=== PATIENT | female | born 1990 | race Caucasian/White ===

== ENCOUNTER 2018-10-18 10:49 | Inpatient (IN) ==
[2018-10-18] MEDS ORDERED: *HR* Labetalol 20 MG/4 ML SYRINGE IVP ONE ×2 (11:43→12:57)
[2018-10-18 12:20] LABS: Basophils # 0.1 K/mcL (0.0-0.2); Basophils % 0.5 %; Eosinophils # 0.1 K/mcL (0.0-0.6); Eosinophils % 0.5 %; Hematocrit 39.8 % (35.3-44.9); Hemoglobin 14.1 g/dL (11.5-15.4); Immature Granulocytes % 0.8 % (0-4); Lymphocytes # 3.2 K/mcL (0.6-4.6); Lymphocytes % 27.8 %; Mean Corpuscular HGB Conc 35.4 g/dL (31.6-35.5); Mean Corpuscular Hemoglobin 32.5 pg (28.0-33.3); Mean Corpuscular Volume 91.7 fL (83.0-100.0); Mean Platelet Volume 12.4 fL (9.4-12.4); Monocytes # 0.8 K/mcL (0.0-1.3); Monocytes % 7.2 %; Neutrophils # 7.3 K/mcL (1.6-8.9); Platelet Count 154 K/mcL (140-400); Red Blood Count 4.34 M/mcL (3.82-4.97); Red Cell Distribution Width 12.5 % (11.5-14.5); Segmented Neutrophils % 63.2 %
[2018-10-18 12:41] LABS: Alanine Aminotransferase 13 Units/L (7-52); Aspartate Amino Transferase 20 Units/L (13-39); BUN/Creatinine Ratio 21 (6-26); Blood Urea Nitrogen 13 mg/dL (6-20); Lactate Dehydrogenase 148 Units/L (140-271); Uric Acid 7.6 mg/dL (2.3-7.6); eGFR For Non-African Americans > 60 (> 60)
[2018-10-18 12:42] LABS: Protein/Creatinine Ratio,Urine 0.7 mg/mg (0.00-0.20)
[2018-10-18 12:45] LABS: Amphetamine Screen,Urine Negative ng/mL (Cutoff=1000); Barbiturate Screen,Urine Negative ng/mL (Cutoff=200); Benzodiazepines Screen,Urine Negative ng/mL (Cutoff=200); Cannabinoid Screen,Urine Negative ng/mL (Cutoff = 50); Cocaine Screen,Urine Negative ng/mL (Cutoff= 300); Opiate Screen,Urine Negative ng/mL (Cutoff=300); Phencyclidine Screen,Urine Negative ng/mL (Cutoff=25)
[2018-10-18] MEDS ORDERED: *HR* Nalbuphine 10 MG/ML AMPUL IVP PRN (12:58)
[2018-10-18] MEDS ORDERED: Metoclopramide 10 MG/2 ML VIAL IVP PRN (12:58)
[2018-10-18] MEDS ORDERED: Naloxone 0.4 MG/ML INJ IVP PRN (12:58)
[2018-10-18] MEDS ORDERED: Famotidine 20 MG/2 ML VIAL IVP PRN (12:58)
[2018-10-18] MEDS ORDERED: Ondansetron 4 MG/2 ML VIAL IVP PRN (12:58)
[2018-10-18] MEDS ORDERED: Magnesium Sulfate 20 gm/500mL 20 GM/500 ML IV.SOLN IVC SCH (13:00)
[2018-10-18] MEDS ORDERED: Ringers Solution, Lactated 1,000 ML IVC SCH (13:00)
[2018-10-18] MEDS ORDERED: miSOPROStol 25 MCG TABLET PO STA (13:02)
--- NOTE | 2018-10-18 13:08 | OB/GYN History & Physical ---
Date of Encounter: 10/18/18 Time of Encounter: 13:03 Assessment and Plan (1) Pre-eclampsia, severe Current visit: Yes Status: Acute Preeclampsia with severe features given severe range blood pressures, elevated protein:creatinine ratio of 0.7, and hyperreflexia. Plan per Dr. Cardona and Dr. Moser who are in agreement about need for admission, delivery and magnesium. Plan for IOl with cyr and cytotec. Magnesium 4 gram load and then 2 grams per hour. Labetalol 20 given in triage and another 40mg at time of admission. Continue to monitor and treat blood pressures as needed. Epidural when requested. Anticipate . Qualifiers: Trimester: third trimester Qualified Code(s): O14.13 - Severe pre- eclampsia, third trimester (2) 37 weeks gestation of Current visit: Yes Status: Acute (3) Obesity affecting in third trimester Current visit: Yes Status: Acute Ultrasound from 09/27/18 showed an AGA fetus in vertex position with a normal JOAQUIN. EFW at that time was 5lbs 2oz (46%) (4) Uterine fibroid during , antepartum Current visit: Yes Status: Acute History of Present Illness Chief complaint: preeclampsia HPI: Ms. Nick is a 27 year old female presenting at 37w5d from office for elevated blood pressures 148/96 and 155/94. She also has new onset of 500+ proteinuria. She denies MCCLELLAND, vision changes, RUQ pain, contractions, leaking, bleeding, or any other complaints. Good FM. This has been complicated by obesity and a 3cm posterior fibroid. She received adequate care from Dr. Moser. O positive Rubella immune Treponema, HIV, Hepatitis B negative GBS negative Past Med Surg Social Fam HX - Past Medical History Medical history: no medical history Psychiatric history: no psych history - Past Surgical History Surgical History: no surgical history - Social History Smoking Status: Never smoker Smokeless Tobacco Status: No Alcohol use: none Drug use: none - Family History Mother Living Status: Still Living Hx Family Cardiac Disorders: Yes (HTN) Hx Family Endocrine Disorder: Yes (DM) Father Hx Family Cancer: Yes (Testicular cancer) Obstetrical History - Pregnancies : 1 Medications and Allergies 19 Tablet 1 tab PO DAILY 10/18/18 [History] Allergy/AdvReac Type Severity Reaction Status Date / Time ampicillin Allergy Hives Verified 10/18/18 11:25 Bee Pollen Allergy Swelling Verified 10/18/18 11:25 of Lip/Tongue/Throat Penicillins Allergy Hives Verified 10/18/18 11:25 Review of System OB All systems PM: reviewed and no additional remarkable complaints except as stated Exam - Constitutional Constitutional: well developed, well nourished, no acute distress, obese - HEENT HEENT: Mucus Membranes Moist - Lungs Respiratory exam: CTAB - Cardiovascular Cardiovascular exam: RRR - Abdomen Abdomen: Present: gravid, non tender - Extremities Extremities exam: normal inspection Deep Tendon Reflex Grade: 3+ Normal But Brisk - Vulva Vulva: bilateral: normal - Vagina Vagina: Present: normal moisture - Cervix Dilation: 1 Effacement: 80 Station: -3 - Anus/Rectum Anus/Rectum: Present: normal perianal skin Results Result Diagrams: 10/18/18 12:01 10/18/18 12:01 Abnormal lab results WBC 11.6 K/mcL (4.3-11.1) H 10/18/18 12:01 Protein/Creatinin Ratio 0.70 mg/mg (0.00-0.20) H 10/18/18 11:56 Urine Total Protein 122 mg/dL (1-14) H 10/18/18 11:56 All other labs normal. - VTE Reasons for not Prescribing Prophylaxis: Treatment not Indicated - Low risk for VTE
[2018-10-18] MEDS ORDERED: Epidural Premix (fent/bupiv) 110 ML EP SCH (13:45)
--- NOTE | 2018-10-18 13:51 | Anesthesia Evaluation PreOp ---
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: Denies Any Significant HX Other Medical History: Denies Any Significant HX Anesthesia History: No Prior Anesthetic Complications : Yes () Alcohol Use: none Drug use: none Medications and Allergies 19 Tablet 1 tab PO DAILY 10/18/18 [History] Allergy/AdvReac Type Severity Reaction Status Date / Time ampicillin Allergy Hives Verified 10/18/18 11:25 Bee Pollen Allergy Swelling Verified 10/18/18 11:25 of Lip/Tongue/Throat Penicillins Allergy Hives Verified 10/18/18 11:25 - Meds/Allergy Pre-op Review Medications Reviewed: Yes Allergies Reviewed: Yes Beta Blockers on Current Med List: Yes (10/18 @ 9000) Anesthesia Results - Labs 10/18/18 12:01 10/18/18 12:01 Anesthesia Exam O2 Sat Height 1.63 m Height 1.63 m Weight 108.3 kg NPO (# of Hours): 4 Pain Scale: 2 Pain Scale Used: Numeric (1 - 10) - HEENT Pupil (Motor): Pupils equal Mallampati: II Teeth: Normal Oral Opening: Greater than 3 - PATTERN GRADER SUPERVISOR LOC: Oriented PATTERN GRADER SUPERVISOR Motor: Normal RUE, Normal LUE, Normal RLE, Normal LLE, Normal Face PATTERN GRADER SUPERVISOR Sensory: Normal: RUE, LUE, RLE, LLE, Face - Cardiac Rhythm: Regular Murmur: None JVD: No Carotid Bruit: No - Pulmonary Breath Sounds: bilateral Clear Respiratory Effort: Symmetrical Anesthesia Assess/Plan ASA Score: 3 (BMI = 41) Level of consciousness: Cooperative, Oriented Anesthetic Plan: General (plan b), Epidural (plan a) Autologous Blood: Yes Monitoring Plan: Standard Monitors
[2018-10-18] MEDS ORDERED: Epidural Premix (fent/bupiv) 110 ML EP ONE (13:52)
[2018-10-18] MEDS ORDERED: Lidocaine -MPF 1% 5 ML AMPUL ONE (13:53)
--- NOTE | 2018-10-18 14:20 | OB Labor Progress Note ---
Date of Encounter: 10/18/18 Time of Encounter: 14:17 Labor Progress Note - Subjective Subjective: Pt denies complaints at this time. - Cervix Cervix: 2/80/-3 - Heart Tones Heart Tones: Category I - Interventions Interventions: Cyr balloon placed in cervix using sterile techinique per request of Dr. Cardona. Balloon inflated with 40ml sterile water. - Plan Plan: Cytotec PO for induction with cyr. Pain medication and/or epidural if requested. Anticipate . Plan per Dr. Cardona who is managing care of pt.
--- NOTE | 2018-10-18 19:06 | OB Labor Progress Note ---
Date of Encounter: 10/18/18 Time of Encounter: 19:03 Labor Progress Note - Subjective Subjective: The patient reports being comfortable with contractions. She denies blurred vision, headaches or epigastric pain. Fetus has been active - Vital Signs Vital Signs: Blood pressures 140s to 150s over 80s to 90s on magnesium with labetalol - Cervix Cervix: 5/80/-1 - Heart Tones Heart Tones: 130s baseline CAT 1 - Chaplin Chaplin: Contractions irregular and infrequent - Interventions Interventions: 37 week IUP with severe preeclampsia on magnesium. Patient is also requiring labetalol for blood pressure control. - Plan Plan: Large amount of pale clear urine output. The patient is asymptomatic. Amniotomy with IUPC placed. Augmentation with Pitocin.
[2018-10-18] MEDS ORDERED: Oxytocin 20 units/ LR 1000 mL 20 UNIT/1,000 ML BAG IVC SCH (19:15)
[2018-10-19] MEDS ORDERED: 0.9 % Sodium Chloride 500 ML ONE (02:26)
--- NOTE | 2018-10-19 03:00 | OB Labor Progress Note ---
Date of Encounter: 10/19/18 Time of Encounter: 02:58 Labor Progress Note - Subjective Subjective: Called by and reporting that patient was having some intermittent variable decelerations, but not with every contraction. [place] units were 230. Patient was on 16 milliunits of Pitocin. She did not have cervical change and was still at 5 cm. The patient is requesting an epidural because she is uncomfortable with her contractions. - Vital Signs Vital Signs: Blood pressures 130s to 140s over 70s to 80s, afebrile - Cervix Cervix: 5/80/-1 per RN, no change - Heart Tones Heart Tones: 120s baseline and reassuring with irregular variable decelerations to 100 - Akhiok Akhiok: Contractions every 2-4 minutes 50-75 mmHg, [place] units 230 - Interventions Interventions: 37 week IUP for induction due to severe preeclampsia on magnesium. - Plan Plan: Urine output had short period of only 50 mL over an hour and the following are back up to 100 mL's. Concern for increasing variable decelerations but not with every contraction. Patient DTRs are 3+. Epidural given. Pitocin decreased to 8 milliunits or half. Amnioinfusion 300 mg a normal saline over 1 hour for 1 time treatment ordered. Continue close observation and induction
--- NOTE | 2018-10-19 03:11 | Anesthesia Procedures ---
Addendum entered and electronically signed by Guille Groves CRNA 10/19/18 06:24: Delivery 10/19/18 @ 0623 Addendum entered and electronically signed by Guille Groves CRNA 10/19/18 03:18: rate at 1.2ml/hr Original Note: Date of Encounter: 10/19/18 Time of Encounter: 03:06 Procedures: Anesthesia - Epidural/Spinal Patient ID/Chart reviewed: Yes Patient examined: Yes OB Eval: Gestational age: 37.1 OB Eval: : 1 OB Eval: Hx Para: 0 OB Eval: Dilated at (cm): 5 OB Eval: Contractions: Non-stressed pattern Consent Obtained: Yes Supplemental Oxygen: None/Room Air Site Prep: Aseptic Technique, Sterile prep and drape, Povidone-Iodine 1% Patient position: upright Local Anesthetic: Lidocaine 1% Amount of Local Anesthetic used: 3 Touhy Needle Gauge: 18 Touhy Needle Depth (cm): 9 Catheter Depth at Skin (cm): 20 Test Dose (1.5% Lido + Epi): Volume given (mls): 5 Test Dose Result: Negative Loading Dose Administered: Thru Catheter Infusion Med: 0.125% Bupivacaine w/ 2 mcg/ml Fentanyl Infusion Rate (mls/hr): [address]: Tegaderm, Tape Interspace Used: L3-L4 Loss of Resistance (JAXSON): Yes Blood: No CSF: No Paresthesia: No Procedure: pt tolerated procedure well. tuouhy needle placed x 1. after negative aspiration, test dose was given in 3 divided doses thru the catheter with negative aspiration after each bolus. pt stated that they could no longer feel contractions and pain was 0/10. there was again negative aspiration at the catheter. pt laid down and vital signs taken. again, negative aspiration on catheter. all vss. fhr stable. gtt started at 2ml/hr and patient informed of potential intrathecal catheter.
--- NOTE | 2018-10-19 07:23 | OB/GYN Procedure Note ---
Delivery - Delivery Date: 10/19/18 Provider: Sulema Cardona Intrapartum events: none Delivery induction: cyr, misoprostol Delivery augmentation: rupture of membranes, pitocin Delivery monitor: external FHT, external uterine, internal uterine Anesthesia: local, intravenous, epidural Quantitated Blood Loss: 500 - Infant (s) A Infant Delivery Date: 10/19/18 Delivery Time: 06:23 Presentation: vertex Position: YURIY Route of delivery: Gender: Male Viability: Viable Pounds: 5 Ounces: 4 Weight Gram: 2.385 kg at 1 minute: 9 at 5 mins: 9 Shoulder Dystocia: not encountered Specimens collected: cord blood Placenta: spontaneous Cord: nuchal cord, 3 umbilical vessels, delivered through nuchal - Repair Episiotomy: none Laceration Description: Periurethral, Perineal - 2nd Degree - Complications Delivery complications: none Delivery comments: The patient was complete and pushing without good control with one contraction with a spontaneous vaginal delivery of a vigorous male infant weighing 5 lbs. 4 oz. with Apgars of 9 at 1 minute and 9 at 5 minutes. There was a nuchal cord that was loose and the was delivered through this. The infant was pl aced on maternal abdomen. The cord was clamped and cut after pulsations ceased. Cord blood was obtained. Placenta was delivered spontaneous and intact. There was a superficial periurethral laceration which was hemostatic and not repaired. There was a second-degree midline perineal laceration which extended up into the vagina which was rapidly bleeding. This was anesthetized with 20 mL of 1% lidocaine with epinephrine and closed with 3-0 Monocryl in a running locking fashion vaginally and in the usual fashion over the perineal area. There was also a vaginal septum that was at the time of delivery. The upper and still had a slight using and this was grasped with a Stephenie clamp and free tied with 3-0 Vicryl. Estimated blood loss 500 mL, not from uterine atony. Good hemostasis was visualized as an procedure. The mother was recovering in stable condition in the LDR. The was taken to the nursery because of it being cold. - Disposition Mom disposition: stable in LDR [place] disposition: stable in LDR
[2018-10-19] MEDS ORDERED: Rho Immune Globulin 1,500 UNIT SYRINGE IM PRN (09:48)
[2018-10-19] MEDS ORDERED: Oxytocin 20 units/ LR 1000 mL 20 UNIT/1,000 ML BAG IVC SCH (09:48)
[2018-10-19] MEDS ORDERED: *HR* HYDROcodone/Acet 5/325 mg TABLET PO PRN (09:48)
[2018-10-19] MEDS ORDERED: Measles/Mumps/Rubella Vacc 0.5 ML VIAL SQ PRN (09:48)
[2018-10-19] MEDS: Magnesium Sulfate 20 gm/500mL 20 GM/500 ML IV.SOLN IVC SCH (10:47)
[2018-10-19] MEDS ORDERED: Acetaminophen 325 MG TABLET PO PRN (12:00)
[2018-10-19] MEDS ORDERED: Calcium Gluconate 1,000 MG/10 ML VIAL IVPB ONE (17:50)
[2018-10-19] MEDS: Benzocaine/Menthol 56 GM AEROSOL SPRAY TP PRN (17:53)
[2018-10-19] MEDS ORDERED: Ringers Solution, Lactated 1,000 ML ONE (23:24)
[2018-10-20 04:43] LABS: Basophils # 0.1 K/mcL (0.0-0.2); Basophils % 0.5 %; Eosinophils # 0.1 K/mcL (0.0-0.6); Eosinophils % 0.6 %; Hematocrit 29.4 % (35.3-44.9); Immature Granulocytes % 0.9 % (0-4); Lymphocytes # 3.4 K/mcL (0.6-4.6); Lymphocytes % 25.1 %; Mean Corpuscular Hemoglobin 31.8 pg (28.0-33.3); Mean Corpuscular Volume 96.4 fL (83.0-100.0); Mean Platelet Volume 12.4 fL (9.4-12.4); Monocytes # 0.8 K/mcL (0.0-1.3); Monocytes % 5.9 %; Neutrophils # 9.2 K/mcL (1.6-8.9); Platelet Count 146 K/mcL (140-400); Red Blood Count 3.05 M/mcL (3.82-4.97)
[2018-10-20 04:50] LABS: Hemoglobin 9.7 g/dL (11.5-15.4)
[2018-10-20 04:58] LABS: Alanine Aminotransferase 9 Units/L (7-52); Aspartate Amino Transferase 15 Units/L (13-39); BUN/Creatinine Ratio 20 (6-26); Blood Urea Nitrogen 13 mg/dL (6-20); Lactate Dehydrogenase 175 Units/L (140-271); eGFR For Non-African Americans > 60 (> 60)
[2018-10-20] MEDS: Ibuprofen 600 MG TABLET PO SCH ×7 (08:13→23:53)
[2018-10-20] MEDS: Prenatal Vit/FA 1 EACH TABLET PO SCH ×2 (08:14→19:31)
--- NOTE | 2018-10-20 08:59 | OB/GYN Progress Note ---
Date of Encounter: 10/20/18 Time of Encounter: 08:49 - Assessment and Plan (1) Pre-eclampsia Current Visit: Yes Status: Acute BP s/p delivery 110-130s/70-80s PIH labs stable Patient denies MCCLELLAND, visual changes, RUQ pain IV Mag discontinued at 0630 Regular diet Will monitor today and plan for discharge tomorrow I examined this patient and my medical decision-making was reviewed with the Resident Physician. I agree with the documented findings, disposition and treatment plan as described. Phillip Davidson CNM Qualifiers: Trimester: third trimester Qualified Code(s): O14.93 - Unspecified pre- eclampsia, third trimester (2) Status post vaginal delivery Current Visit: Yes Status: Acute Continue pain managment assistance PRN Expected DC tomorrow (3) anemia Current Visit: Yes Status: Acute Hgb 9.7 Continue daily iron supplementation Subjective - Subjective Principal diagnosis: s/p vaginal delivery Interval history: Patient doing well. Ambulating. Tolerating diet. Bleeding has decreased. Passing gas and voiding as expected. Minimal discomfort, pain well controlled with prescribed medications. . Denies MCCLELLAND, visual changes, LUQ pain. Patient reports: appetite normal, voiding normally, pain well controlled, ambulating normally : doing well, nursing well Objective - Latest Vital Signs Latest vital signs: Vital Signs Temp Pulse Resp BP Pulse Ox 10/20/18 07:30 97.7 F 92 16 130/81 10/20/18 05:30 82 18 132/84 10/20/18 04:30 82 18 112/72 10/20/18 03:30 74 18 116/77 10/20/18 02:30 97.7 F 81 18 119/81 98 10/20/18 01:30 84 20 122/85 10/20/18 00:43 73 16 119/76 10/19/18 23:30 73 16 121/85 10/19/18 22:35 77 16 105/72 10/19/18 21:30 76 20 128/84 10/19/18 20:30 74 18 106/73 10/19/18 19:30 98.0 F 84 18 107/74 98 10/19/18 18:38 80 14 108/75 10/19/18 17:40 81 16 105/73 10/19/18 16:29 85 14 113/75 10/19/18 15:22 79 14 115/73 10/19/18 14:41 76 16 110/74 10/19/18 13:31 72 16 110/72 10/19/18 12:35 87 16 118/79 10/19/18 11:35 98.1 F 88 16 134/89 10/19/18 10:40 87 16 139/88 10/19/18 09:36 97.5 F L 81 16 111/74 98 10/19/18 09:30 81 16 111/74 Intake and Output 10/19/18 10/20/18 10/20/18 23:59 07:59 15:59 Intake Total 350 / 350 800 / 800 Output Total 2400 / 2400 1800 / 1800 Balance -2049 / -2049 -1000 / -1000 Intake: IV Fluids 500 / 500 Magnesium Sulfate Premix 20 gm/ 500 / 500 500mL 20 gm In 500 ml @ 2 GM/HR 50 mls/hr IVC .Q10H HUAN Rx#: [id number] Oral 350 / 350 300 / 300 Output: Urine 2400 / 2400 1800 / 1800 - Exam Lungs: bilateral: normal Chest: Normal S1, Normal S2 Extremities: Present: normal. Absent: edema Abdomen: Present: soft. Absent: distention, tenderness Uterus: Present: firm. Absent: tenderness Uterus Position: 2 Fingers Below Umbilicus - Labs Labs: Laboratory Results - last 24 hr 10/20/18 10/20/18 04:14 04:14 WBC 13.7 H RBC 3.05 L Hgb 9.7 L D Hct 29.4 L MCV 96.4 MCH 31.8 MCHC 33.0 RDW 13.0 Plt Count 146 MPV 12.4 Immature Gran % 0.9 Seg Neutrophils % 67.0 Lymphocytes % 25.1 Monocytes % 5.9 Eosinophils % 0.6 Basophils % 0.5 Neutrophils # 9.2 H Lymphocytes # 3.4 Monocytes # 0.8 Eosinophils # 0.1 Basophils # 0.1 BUN 13 Creatinine 0.65 Est GFR ( Amer) > 60 Est GFR (Non-Af Amer) > 60 BUN/Creatinine Ratio 20 Uric Acid 8.0 H AST 15 ALT 9 Lactate Dehydrogenase 175
[2018-10-20] MEDS: Magnesium Sulfate 20 gm/500mL 20 GM/500 ML IV.SOLN IVC SCH ×2 (19:32→19:33)
[2018-10-21] MEDS: Ibuprofen 600 MG TABLET PO SCH (06:22)
[2018-10-21 07:28] LABS: Basophils # 0.1 K/mcL (0.0-0.2); Basophils % 0.4 %; Eosinophils # 0.1 K/mcL (0.0-0.6); Eosinophils % 0.8 %; Hematocrit 29.2 % (35.3-44.9); Hemoglobin 9.6 g/dL (11.5-15.4); Immature Granulocytes % 1.3 % (0-4); Lymphocytes # 3.5 K/mcL (0.6-4.6); Mean Corpuscular HGB Conc 32.9 g/dL (31.6-35.5); Mean Corpuscular Hemoglobin 32.1 pg (28.0-33.3); Mean Corpuscular Volume 97.7 fL (83.0-100.0); Mean Platelet Volume 11.9 fL (9.4-12.4); Monocytes # 0.9 K/mcL (0.0-1.3); Monocytes % 6.3 %; Neutrophils # 9.7 K/mcL (1.6-8.9); Nucleated Red Blood Cells 0.1 /100 WBC (0); Platelet Count 157 K/mcL (140-400); Red Blood Count 2.99 M/mcL (3.82-4.97); Red Cell Distribution Width 13.2 % (11.5-14.5); Segmented Neutrophils % 67.2 %
[2018-10-21 07:48] LABS: Alanine Aminotransferase 10 Units/L (7-52); Aspartate Amino Transferase 17 Units/L (13-39); BUN/Creatinine Ratio 27 (6-26); Blood Urea Nitrogen 17 mg/dL (6-20); Lactate Dehydrogenase 170 Units/L (140-271); Uric Acid 7.5 mg/dL (2.3-7.6); eGFR For Non-African Americans > 60 (> 60)
[2018-10-21 07:52] VITALS: BP 137/92
--- NOTE | 2018-10-21 09:42 | Discharge Summary ---
Date of Encounter: 10/21/18 Time of Encounter: 09:42 - Discharge Diagnosis (1) Status post vaginal delivery Priority: Primary Status: Acute Comments: Patient meeting day one milestones. Pain well-controlled with prescribed medications. Voiding without difficulty, tolerating regular diet, bleeding light. Positive bowel movement yesterday. Anticipate discharge today (2) Breast feeding status of mother Priority: Secondary Status: Acute Comments: support as needed Will provide a breast pump prescription (3) anemia Priority: Secondary Status: Acute Comments: Continue daily iron supplementation. Will send prescription to patient's pharmacy (4) Pre-eclampsia Priority: Secondary Status: Acute Comments: Patient is to continue on labetalol 200 mg twice a day. We will schedule a 1 week follow-up for her to have a blood pressure check. Qualifiers: Trimester: third trimester Qualified Code(s): O14.93 - Unspecified pre- eclampsia, third trimester (5) Second degree perineal laceration during delivery Priority: Secondary Status: Acute Comments: Motrin, dermoplast, ice packs for discomfort. - Discharge Medications Prescriptions: New Acetaminophen [Tylenol] 650 mg PO Q6HR PRN tablet PRN Reason: Mild Pain Ibuprofen [Motrin] 600 mg PO Q6HR #60 tablet Benzocaine/Menthol [place] [Dermoplast [place]] 1 appl TP QID PRN aerosol PRN Reason: See Comments Breast Pump [BREAST PUMP] 1 each .ROUTE AD #1 each Docusate [Colace] 100 mg PO BID #60 capsule Ferrous Sulfate 325 mg PO 0800 #30 tablet Labetalol [Trandate] 200 mg PO BID #60 tablet Blood Pressure Test Kit-Large [Blood Pressure Monitor] 1 each MC DAILY #1 kit Continue 19 Tablet 1 tab PO DAILY Home Medications: 19 Tablet 1 tab PO DAILY 10/18/18 [History] Acetaminophen [Tylenol] 650 mg PO Q6HR PRN tablet 10/21/18 [Rx] Benzocaine/Menthol [place] [Dermoplast [place]] 1 appl TP QID PRN aerosol 10/21/18 [Rx] Blood Pressure Test Kit-Large [Blood Pressure Monitor] 1 each MC DAILY #1 kit 10/21/18 [Rx] Breast Pump [BREAST PUMP] 1 each .ROUTE AD #1 each 10/21/18 [Rx] Docusate [Colace] 100 mg PO BID #60 capsule 10/21/18 [Rx] Ferrous Sulfate 325 mg PO 0800 #30 tablet 10/21/18 [Rx] Ibuprofen [Motrin] 600 mg PO Q6HR #60 tablet 10/21/18 [Rx] Labetalol [Trandate] 200 mg PO BID #60 tablet 10/21/18 [Rx] Allergies/Adverse Reactions: Allergy/AdvReac Type Severity Reaction Status Date / Time ampicillin Allergy Hives Verified 10/18/18 11:25 Bee Pollen Allergy Swelling Verified 10/18/18 11:25 of Lip/Tongue/Throat Penicillins Allergy Hives Verified 10/18/18 11:25 Data Procedures and tests throughout hospitalization: Laboratory Tests 10/18/18 10/18/18 10/18/18 11:56 11:56 12:01 WBC 11.6 H RBC 4.34 Hgb 14.1 Hct 39.8 MCV 91.7 MCH 32.5 MCHC 35.4 RDW 12.5 Plt Count 154 MPV 12.4 Immature Gran % 0.8 Seg Neutrophils % 63.2 Lymphocytes % 27.8 Monocytes % 7.2 Eosinophils % 0.5 Basophils % 0.5 Neutrophils # 7.3 Lymphocytes # 3.2 Monocytes # 0.8 Eosinophils # 0.1 Basophils # 0.1 Nucleated RBCs/100 WBC BUN Creatinine Est GFR ( Amer) Est GFR (Non-Af Amer) BUN/Creatinine Ratio Uric Acid AST ALT Lactate Dehydrogenase Urine Creatinine 174 Protein/Creatinin Ratio 0.70 H Urine Total Protein 122 H Urine Opiates Screen Negative Ur Barbiturates Screen Negative Ur Phencyclidine Scrn Negative Ur Amphetamines Screen Negative U Benzodiazepines Scrn Negative Urine Cocaine Screen Negative U Marijuana (THC) Screen Negative Ur Drug Screen Interp See Below 10/18/18 10/20/18 10/20/18 12:01 04:14 04:14 WBC 13.7 H RBC 3.05 L Hgb 9.7 L D Hct 29.4 L MCV 96.4 MCH 31.8 MCHC 33.0 RDW 13.0 Plt Count 146 MPV 12.4 Immature Gran % 0.9 Seg Neutrophils % 67.0 Lymphocytes % 25.1 Monocytes % 5.9 Eosinophils % 0.6 Basophils % 0.5 Neutrophils # 9.2 H Lymphocytes # 3.4 Monocytes # 0.8 Eosinophils # 0.1 Basophils # 0.1 Nucleated RBCs/100 WBC BUN 13 13 Creatinine 0.61 0.65 Est GFR ( Amer) > 60 > 60 Est GFR (Non-Af Amer) > 60 > 60 BUN/Creatinine Ratio 21 20 Uric Acid 7.6 8.0 H AST 20 15 ALT 13 9 Lactate Dehydrogenase 148 175 Urine Creatinine Protein/Creatinin Ratio Urine Total Protein Urine Opiates Screen Ur Barbiturates Screen Ur Phencyclidine Scrn Ur Amphetamines Screen U Benzodiazepines Scrn Urine Cocaine Screen U Marijuana (THC) Screen Ur Drug Screen [facility] 10/21/18 10/21/18 07:15 07:15 WBC 14.4 H RBC 2.99 L Hgb 9.6 L Hct 29.2 L MCV 97.7 MCH 32.1 MCHC 32.9 RDW 13.2 Plt Count 157 MPV 11.9 Immature Gran % 1.3 Seg Neutrophils % 67.2 Lymphocytes % 24.0 Monocytes % 6.3 Eosinophils % 0.8 Basophils % 0.4 Neutrophils # 9.7 H Lymphocytes # 3.5 Monocytes # 0.9 Eosinophils # 0.1 Basophils # 0.1 Nucleated RBCs/100 WBC 0.1 H BUN 17 Creatinine 0.62 Est GFR ( Amer) > 60 Est GFR (Non-Af Amer) > 60 BUN/Creatinine Ratio 27 H Uric Acid 7.5 AST 17 ALT 10 Lactate Dehydrogenase 170 Urine Creatinine Protein/Creatinin Ratio Urine Total Protein Urine Opiates Screen Ur Barbiturates Screen Ur Phencyclidine Scrn Ur Amphetamines Screen U Benzodiazepines Scrn Urine Cocaine Screen U Marijuana (THC) Screen Ur Drug Screen [facility] Labs on day of discharge: Labs from last 24 hours 10/21/18 10/21/18 07:15 07:15 WBC 14.4 H RBC 2.99 L Hgb 9.6 L Hct 29.2 L MCV 97.7 MCH 32.1 MCHC 32.9 RDW 13.2 Plt Count 157 MPV 11.9 Immature Gran % 1.3 Seg Neutrophils % 67.2 Lymphocytes % 24.0 Monocytes % 6.3 Eosinophils % 0.8 Basophils % 0.4 Neutrophils # 9.7 H Lymphocytes # 3.5 Monocytes # 0.9 Eosinophils # 0.1 Basophils # 0.1 Nucleated RBCs/100 WBC 0.1 H BUN 17 Creatinine 0.62 Est GFR ( Amer) > 60 Est GFR (Non-Af Amer) > 60 BUN/Creatinine Ratio 27 H Uric Acid 7.5 AST 17 ALT 10 Lactate Dehydrogenase 170 Date of admission: 10/18/18 10:49 Primary care physician: Germain Raya MD Consults: 10/19/18 09:48 Consult to Histopathology Technician [CONS] Routine Comment: Vaginal delivery, consult needed Discharging clinician: Kristina Shelley Anticipated date of discharge: 10/21/18 - Patient Status Disposition: Home, Self-Care Condition: Good Functional capacity at discharge: independent ambulation Overall status at discharge: patient is progressing back to baseline - Discharge Instructions Follow Up With: Germain Raya MD [Primary Care Provider] - - Diet and Activity Activity: resume usual activities as tolerated Diet: regular diet Hospital Course Reason for admission: induction of labor Delivery: Episiotomy: none Laceration: 2nd degree Other procedures: none complications: other (24 hrs Mag Sulfate PP) Discharge diagnosis: IUP at term delivered [place] baby: male Hospital course: Patient was induced for pre-eclampsia with severe features. Delivery Date: 10/19/18 Provider: Sulema Cardona Intrapartum events: none Delivery induction: cyr, misoprostol Delivery augmentation: rupture of membranes, pitocin Delivery monitor: external FHT, external uterine, internal uterine Anesthesia: local, intravenous, epidural Quantitated Blood Loss: 500 - Infant (s) A Infant Delivery Date: 10/19/18 Delivery Time: 06:23 Presentation: vertex Position: YURIY Route of delivery: Gender: Male Viability: Viable Pounds: 5 Ounces: 4 Weight Gram: 2.385 kg at 1 minute: 9 at 5 mins: 9 Shoulder Dystocia: not encountered Specimens collected: cord blood Placenta: spontaneous Cord: nuchal cord, 3 umbilical vessels, delivered through nuchal - Repair Episiotomy: none Laceration Description: Periurethral, Perineal - 2nd Degree - Complications Delivery complications: none Delivery comments: The patient was complete and pushing without good control with one contraction with a spontaneous vaginal delivery of a vigorous male weighing 5 lbs. 4 oz. with Apgars of 9 at 1 minute and 9 at 5 minutes. There was a nuchal cord that was loose and the was delivered through this. The was placed on maternal abdomen. The cord was clamped and cut after pulsations ceased. Cord blood was obtained. Placenta was delivered spontaneous and intact. There was a superficial periurethral laceration which was hemostatic and not repaired. There was a second-degree midline perineal laceration which extended up into the vagina which was rapidly bleeding. This was anesthetized with 20 mL of 1% lidocaine with epinephrine and closed with 3-0 Monocryl in a running locking fashion vaginally and in the usual fashion over the perineal area. There was also a vaginal septum that was at the time of delivery. The upper and still had a slight using and this was grasped with a Stephenie clamp and free tied with 3-0 Vicryl. Estimated blood loss 500 mL, not from uterine atony. Good hemostasis was visualized as an procedure. The mother was recovering in stable condition in the LDR. The was taken to the nursery because of it being cold. - Disposition Mom disposition: stable in LDR [place] disposition: stable in LDR Time Attestation: Total time spent providing and/or coordinating discharge services: Time Spent: Less than 30 minutes Exam - Constitutional Vitals: Temp Pulse Resp BP Pulse Ox 98.1 F 94 16 137/92 98 10/21/18 07:51 10/21/18 07:51 10/21/18 07:51 10/21/18 07:51 10/21/18 03:32 General appearance IM: A&O X 3, pleasant, no acute distress, obese, answers questions appropriately - Respiratory Respiratory exam: Present: CTAB - Cardiovascular Cardiovascular exam IM: Present: RRR, +S1, +S2 - GI/Abdominal GI/Abdominal exam IM: normal bowel sounds - Rectal Rectal exam: deferred - Uterine Tone: Firm Uterus Position: At Umbilicus, Midline - Extremities Exam Extremities exam IM: Present: full ROM, normal capillary refill, normal inspection - Neurological Exam Neurological exam: alert, normal gait, oriented X3
[2018-10-21] MEDS: Benzocaine/Menthol 56 GM AEROSOL SPRAY TP PRN (10:34)
== END 2018-10-21 12:30 | disposition home or self-care (01) | DRG 560 ==
LOC: 1NENULAB → OBSVTOIN 10:49 → 1NENUOBS 10-19 09:27
PROVIDERS: ADMIT Registered Nurse; ATTEND Registered Nurse